=== PATIENT | male | born 1970 | race Caucasian/White ===

== ENCOUNTER 2017-04-17 08:33 | Emergency (ER) | payer MEDICAID ==
[2017-04-17 08:38] VITALS: BP 114/75; PULSE 91; RESP 16; TEMP 97.7; O2SAT 98
[2017-04-17] MEDS ORDERED: DIAZEPAM 10 MG/2 ML SYR IVP ONE (08:51)
[2017-04-17] MEDS ORDERED: DEXAMETHASONE 4 MG/ML VIAL IVP ONE (08:51)
[2017-04-17] MEDS ORDERED: KETOROLAC 30 MG/1 ML SDV IVP ONE (08:52)
--- NOTE | 2017-04-17 09:05 | EDPHY ---
H & P Stated Complaint: new injury w/ old chronic back pain & surg. Source: Patient Exam Limitations: No limitations - Personal History Current Tetanus/Diphtheria Vaccine: Yes Current Tetanus Diphtheria and Acellular Pertussis (TDAP): Yes - Medical/Surgical History Hx Asthma: No Hx Chronic Respiratory Disease: No Hx Diabetes: No Hx Cardiac Disease: No Hx Renal Disease: No Hx Cirrhosis: No Hx Alcoholism: No Hx HIV/AIDS: No Hx Splenectomy or Spleen Trauma: No Other PMH: Discectomy 2015 - Social History Smoking Status: Never smoked Time Seen by Provider: 04/17/17 08:53 HPI/ROS: HPI: This is a 47-year-old male who presents with Chief Complaint: Left lower back pain Location: Left lower back Quality: Aching, sharp at times pain Duration: Since yesterday evening Signs and Symptoms: No incontinence, no fever, no difficulty ambulating, no weakness, no numbness, no tingling, no radiation, no urinary symptoms, no abdominal pain Timing: Gradual onset, worse with flexion and certain movements Severity: 8/10 Context: Patient was lifting a 5 lb pain block it out of his truck yesterday and strained his left lower back. The pain was instant and has gradually worsened over the evening into the morning. He has a history of lower back surgery in 2014, what seems to be a discectomy/laminectomy with hardware placement. Patient no longer follows with his neurosurgeon times 1-2 years. Denies chronic back pain or chronic opiate pain medication use. Patient was ambulatory yesterday and drove himself to the ER today. Modifying Factors: Tylenol, Advil no relief Comment: ROS: Constitutional: No fever, no chills, no weight loss Eyes: No blurred vision Respiratory: No shortness of breath, no cough Cardiovascular: No chest pain Gastrointestinal: No nausea, no vomiting no diarrhea Genitourinary: No dysuria Extremities: No myalgias Neurologic: No weakness, no numbness Skin: No rashes Hematologic: No bruising, no bleeding MEDICAL/SURGICAL HISTORY: Generally healthy. Back surgery. (Ruby Ca) - Physical Exam Exam: CONSTITUTIONAL: Adult white male, polite and cooperative, awake and alert, mild obvious distress HEENT: Atraumatic and normocephalic, PERRL, EOMI. Tympanic membranes clear. Oropharynx clear, no exudate and moist pink mucosa. Airway patent. No lymphadenopathy. No meningismus. Cardiovascular: Normal S1/S2, regular rate, regular rhythm, without murmur rub or gallop. PULMONARY/CHEST: Symmetrical and nontender. Clear to auscultation bilaterally Good air movement. No accessory muscle usage. ABDOMEN: Soft, nondistended, nontender, no rebound, no guarding, no peritoneal signs, no masses or organomegaly. No CVAT. EXTREMITIES: 2/2 pulses, no deformities, no clubbing, no cyanosis or edema. BACK: Reproducible left lumbar paraspinous muscle tenderness, mild paraspinous spasm on the left, mild pain with left straight leg raise, no pain with right straight leg raise, able to walk on heels and toes. Decreased flexion/extension /rotation secondary to pain. NEUROLOGICAL: no focal neuro deficits. GCS 15. SKIN: Warm and dry, no erythema. no rash. Good capillary refill. (Ruby Ca) Constitutional: Initial Vital Signs Temperature (C) 36.5 C 04/17/17 08:36 Heart Rate 91 04/17/17 08:36 Respiratory Rate 16 04/17/17 08:36 Blood Pressure 114/75 04/17/17 08:36 O2 Sat (%) 98 04/17/17 08:36 O2 Delivery Mode Room Air Allergies/Adverse Reactions: No Known Allergies Allergy (Unverified 04/17/17 08:38) Home Medications: Medication Instructions Recorded Cyclobenzaprine [Flexeril 10 MG 10 mg PO TID PRN #15 tab 04/17/17 (*)] methylPREDNISolone [Medrol Dose 1 each PO AD #0 ea 04/17/17 Daniel] Medical Decision Making - Diagnostics Imaging Results: Imaging Impressions Lumbar Spine X-Ray 04/17/17 08:49 Impression: Status post instrumentation and fusion at L5-S1 without evidence of loosening or complication. Otherwise normal lumbar spine radiographs. ED Course/Re-evaluation: Lumbar spine x-ray, IV medications ordered 850: IV Toradol, IV Valium, IV Decadron given with moderate relief No signs of neurovascular compromise/cauda equina syndrome/saddle anesthesia Suspect lumbar paraspinous muscle strain Lumbar sacral x-ray reviewed by myself on PACS and shows hardware in place at L5 -S1; no loosening; no acute fractures; relatively good spacing of vertebra. Advised rice therapy, NSAIDs, muscle relaxers, medrol dose daniel (Ruby Ca) Differential Diagnosis: Back pain including but not limited to muscular pain, herniated disc, spine fracture, intra-abdominal causes and urinary tract infection. (Ruby Ca) Other Provider: PHYSICIAN DOCUMENTATION: The patient was evaluated and managed by the Physician Television Journalist. My co- signature indicates that I have reviewed this chart and I agree with the findings and plan of care as documented. I am the secondary supervising physician. (Woody Mtz) - Data Points Medications Given: Discontinued Medications Dexamethasone (Decadron Injection) 8 mg IVP EDNOW ONE Stop: 04/17/17 08:52 Last Admin: 04/17/17 09:12 Dose: 8 mg Diazepam (Valium Injection) 5 mg IVP EDNOW ONE Stop: 04/17/17 08:52 Last Admin: 04/17/17 08:57 Dose: 5 mg Ketorolac Tromethamine (Toradol) 30 mg IVP EDNOW ONE Stop: 04/17/17 08:53 Last Admin: 04/17/17 09:01 Dose: 30 mg Departure - Departure Disposition: Home, Routine, Self-Care Clinical Impression: History of back surgery Strain of lumbar paraspinous muscle Qualifiers: Encounter type: initial encounter Qualified Code(s): S39.012A - Strain of muscle, fascia and tendon of lower back, initial encounter Condition: Good Instructions: Low Back Strain (ED), Lower Back Exercises (ED) Additional Instructions: If symptoms continue to improve since greater than 1 week, please follow up with Neurosurgery, Dr. Vazquez, that performed original back surgery. Referrals: NONE *PRIMARY CARE P,. [Primary Care Provider] - As per Instructions [facility],. [Clinic] - 5-7 days, if not improved Prescriptions: Cyclobenzaprine [Flexeril 10 MG (*)] 10 mg PO TID PRN #15 tab PRN Reason: Spasms methylPREDNISolone [Medrol Dose Daniel] 1 each PO AD #0 ea
== END 2017-04-17 10:06 | disposition home or self-care (01) ==
DX: S39.012A Strain of muscle, fascia and tendon of lower back, initial encounter (principal); Z98.1 Arthrodesis status; X58.XXXA Exposure to other specified factors, initial encounter
CPT/HCPCS: 96374; J1100; J1885